=== PATIENT | female | born 1995 | race Caucasian/White ===

== ENCOUNTER 2017-07-27 23:58 | Emergency (ER) | payer OTHER ==
[~2017-07-27] VITALS: Ht 167.6 cm; Wt 113.4 kg
[2017-07-28] MEDS ORDERED: ZOLOFT100 MG (00:20)
[2017-07-28] MEDS ORDERED: XANAX 0.5 MG0.5 MG PO (00:30)
[2017-07-28 01:05] VITALS: BP 141/100
--- NOTE | 2017-07-28 15:23 | EKG ---
[place] [address] ELECTROCARDIOGRAM REPORT Name: LAMAR STEWARD Room: [facility]#: [id number] Admission: 07/27/17 Attend Phys: Discharge: 07/28/17 Date of : [birth year] Report #: [id number] THIS REPORT FOR: //name// [facility] ED Test Date: 2017-07-28 Test Time: 00:28:45 Pat Name: LAMAR STEWARD Department: Room: Gender: F Safety Scientist: TITA Felder : 1995 Requested By: Deandra Torres Order Number: [id number] MD: Faheem De Leon Measurements Intervals [place] Rate: 72 P: 45 [place]: 146 QRS: 11 QRSD: 100 T: 34 QT: 393 QTc: 431 Interpretive Statements Sinus rhythm No previous ECG available for comparison Electronically Signed On 07-28-2017 15:23:29 CDT by Faheem De Leon [email or web address] <ELECTRONICALLY SIGNED> By: Faheem De Leon MD, [facility] 07/28/17 1523 0028 0028 Faheem De Leon MD, FACC /EPI
== END 2017-07-28 01:05 | disposition home or self-care (01) ==
LOC: M.ERS 23:58
DX: F41.0 Panic disorder [episodic paroxysmal anxiety] (principal); Z88.2 Allergy status to sulfonamides